=== PATIENT | male | born 1990 | race Caucasian/White ===

== ENCOUNTER 2018-11-03 01:27 | Emergency (ER) | payer BC ==
[2018-11-03] MEDS ORDERED: MORPHINE 4 MG/ML SYR ONE (02:12)
[2018-11-03] MEDS ORDERED: ONDANSETRON 4 MG/2 ML VIAL ONE (02:13)
[2018-11-03] MEDS ORDERED: KETOROLAC 30 MG/ML INJ ONE (02:13)
[2018-11-03] MEDS ORDERED: NA CHLORIDE 0.9% 1,000 ML ONE ×2 (02:13→03:40)
[2018-11-03 02:16] LABS: Absolute Lymphocytes (CBC) 3.6 K/uL (0.7-4.9); Absolute Monocytes 0.9 K/uL (0.1-1.3); Absolute Neutrophil 5.5 K/uL (1.8-8.0); Basophils % 1.1 % (0-1.3); Eosinophils % 0.8 % (0-4.4); Hematocrit 50.1 % (39.6-49.0); Lymphocytes % 35.5 % (15.3-44.8); MPV 9.2 fL (7.6-11.3); Monocytes % 8.7 % (3.3-12.3)
[2018-11-03 02:23] LABS: Albumin 3.8 g/dL (3.4-5.0); Bilirubin Direct 0.3 mg/dL (0-0.2); Bilirubin Total 1.8 mg/dL (0.2-1.0); Potassium 3.8 mmol/L (3.5-5.1); Protein, Total 6.8 g/dL (6.4-8.2)
[2018-11-03] MEDS ORDERED: CEFTRIAXONE/SWI 1gm 1 GM/10 ML SYR ONE (03:40)
[2018-11-03] MEDS ORDERED: TAMSULOSIN 0.4 MG SR CAP ONE (03:40)
--- NOTE | 2018-11-03 04:13 | ER ---
Nurse's Notes [facility] Name: Steve Casillas Age: 27 yrs Sex: Male : 1990 Arrival Date: 11/03/2018 Time: 01:28 Bed 18 Private MD: ERNESTO WILLARD Diagnosis: Hydronephrosis with renal and ureteral calculous obstruction-3 mm distal stone/uvj Presentation: 11/03 01:50 Presenting complaint: Patient states: "Sharp left groin pain that started at 0100H this cc3 morning". Transition of care: patient was not received from another setting of care. Onset of symptoms was November 03, 2018. Risk Assessment: Do you want to hurt yourself or someone else? Patient reports no desire to harm self or others. Initial Sepsis Screen: Does the patient meet any 2 criteria? No. Patient's initial sepsis screen is negative. Does the patient have a suspected source of infection? No. Patient's initial sepsis screen is negative. Care prior to arrival: None. 01:50 Method Of Arrival: Ambulatory cc3 01:50 Acuity: PRAVEENA 3 cc3 Triage Assessment: 01:50 General: Appears in no apparent distress. uncomfortable, Behavior is cooperative, cc3 anxious. Pain: Complains of pain in left groin, left flank Pain currently is 10 out of 10 on a pain scale. Quality of pain is described as aching, sharp, Pain began 1 hour ago. EENT: No signs and/or symptoms were reported regarding the EENT system. Neuro: Level of Consciousness is awake, alert, obeys commands, Oriented to person, place, time, situation, Appropriate for age. Cardiovascular: Denies chest pain, Patient's skin is warm and dry. Respiratory: Airway is patent Respiratory effort is even, unlabored, Respiratory pattern is regular, symmetrical. GI: Abdomen is round obese. : No signs and/or symptoms were reported regarding the genitourinary system. Derm: No signs and/or symptoms reported regarding the dermatologic system. Musculoskeletal: Circulation, motion, and sensation intact. Range of motion: intact in all extremities. Historical: - Allergies: 01:50 No Known Allergies; cc3 - PMHx: 01:50 Kidney stones; cc3 - PSHx: 01:50 right knee surgery; cc3 - Immunization history:: Adult Immunizations up to date. - Social history:: Smoking status: Patient/guardian denies using tobacco, never smoked. - Ebola Screening: : No symptoms or risks identified at this time. Screenin:50 Abuse screen: Denies threats or abuse. Denies injuries from another. Nutritional cc3 screening: No deficits noted. Tuberculosis screening: No symptoms or risk factors identified. Fall Risk Ambulatory Aid- None/Bed Rest/Nurse Assist (0 pts). Gait- Normal/Bed Rest/Wheelchair (0 pts) Mental Status- Oriented to own ability (0 pts). Assessment: 01:50 General: see triage assessment. cc3 02:19 Reassessment: Patient appears in no apparent distress at this time. Patient and/or cc3 family updated on plan of care and expected duration. Pain level reassessed. Patient is alert, oriented x 3, equal unlabored respirations, skin warm/dry/pink. 03:25 Reassessment: Patient appears in no apparent distress at this time. Patient and/or cc3 family updated on plan of care and expected duration. Pain level reassessed. Patient is alert, oriented x 3, equal unlabored respirations, skin warm/dry/pink. 04:40 Reassessment: Patient appears in no apparent distress at this time. Patient and/or cc3 family updated on plan of care and expected duration. Pain level reassessed. Patient is alert, oriented x 3, equal unlabored respirations, skin warm/dry/pink. Dr. Husain discharged the patient home with prescription given. IV cannula removed and patient left ER vitally stable and ambulatory with his . Patient denies pain at this time. Patient states feeling better. Patient states symptoms have improved. Vital Signs: 01:50 BP 142 / 83; Pulse 118; Resp 20 S; Temp 98.3(O); Pulse Ox 99% on R/A; Weight 146.96 kg cc3 (R); Height 5 ft. 10 in. (177.80 cm) (R); Pain 10/10; 02:45 BP 146 / 85; Pulse 92; Resp 20 S; Pulse Ox 98% on R/A; Pain 5/10; cc3 03:30 BP 144 / 79; Pulse 102; Resp 19 S; Pulse Ox 99% on R/A; cc3 04:10 BP 133 / 86; Pulse 93; Resp 18 S; Pulse Ox 96% on R/A; cc3 01:50 Body Mass Index 46.49 (146.96 kg, 177.80 cm) cc3 ED Course: 01:28 Patient arrived in ED. am2 01:28 ERNESTO WILLARD is Private Physician. am2 01:40 Deejay Husain MD is Attending Physician. cheo 01:48 Fany Small is Primary Nurse. cc3 01:50 Inserted saline lock: 20 gauge in right hand, using aseptic technique. Blood collected. cc3 01:50 Arm band placed on right wrist. cc3 01:50 Patient has correct armband on for positive identification. Bed in low position. Call cc3 light in reach. Side rails up X 1. Pulse ox on. NIBP on. 02:26 CT completed. Patient tolerated procedure well. Patient moved to CT via wheelchair. eh Patient moved back from CT. 02:46 CT Stone Protocol In Process Unspecified. EDMS 02:53 Triage completed. cc3 04:12 Marilu Pritchett MD is Referral Physician. cheo 04:40 No provider procedures requiring assistance completed. IV discontinued, intact, cc3 bleeding controlled, No redness/swelling at site. Pressure dressing applied. Administered Medications: 02:00 Drug: NS 0.9% 1000 ml Route: IV; Rate: 1 bolus; Site: right hand; cc3 04:00 Follow up: Response: No adverse reaction; IV Status: Completed infusion; IV Intake: cc3 1000ml 02:00 Drug: morphine 4 mg Route: IVP; Site: right hand; cc3 02:30 Follow up: Response: No adverse reaction; Pain is decreased cc3 02:03 Drug: TORadol 30 mg Route: IVP; Site: right hand; cc3 02:30 Follow up: Response: No adverse reaction; Pain is decreased cc3 02:07 Drug: Zofran 4 mg Route: IVP; Site: right hand; cc3 02:30 Follow up: Response: No adverse reaction; Nausea is decreased cc3 03:25 Drug: Flomax 0.4 mg Route: PO; cc3 03:30 Follow up: Response: No adverse reaction cc3 03:30 Drug: Rocephin - (cefTRIAXone) 1 grams Route: IVPB; Infused Over: 30 mins; Site: right cc3 hand; 03:30 Follow up: Response: No adverse reaction; IV Status: Completed infusion; IV Intake: [id number] 03:37 Drug: NS 0.9% 1000 ml Route: IV; Rate: 1 bolus; Site: right hand; cc3 04:30 Follow up: Response: No adverse reaction; IV Intake: 600ml ; patient discharged home cc3 Intake: 03:30 IV: 10ml; Total: 10ml. cc3 04:00 IV: 1000ml; Total: 1010ml. cc3 04:30 IV: 600ml; Total: 1610ml. cc3 Outcome: 04:12 Discharge ordered by . cheo 04:40 Discharged to home ambulatory, with family. cc3 04:40 Condition: stable 04:40 Discharge instructions given to patient, Instructed on discharge instructions, follow up and referral plans. medication usage, Demonstrated understanding of instructions, follow-up care, medications, Prescriptions given X 4. 04:46 Patient left the ED. cc3 Signatures: Dispatcher [employer] EDMS Deejay Husain MD MD cha Hagler, Janel Garg Fany Lira cc3 Corrections: (The following items were deleted from the chart) 04:19 01:50 BP 142 / 83; Pulse 118bpm; Resp 20bpm; Spontaneous; Pulse Ox 99% RA; Temp 98.3F cc3 Oral; cc3 04:19 02:45 BP 146 / 85; Pulse 92bpm; Resp 20bpm; Spontaneous; Pulse Ox 98% RA; cc3 cc3
--- NOTE | 2018-11-03 04:13 | EDPHYS ---
Physician Documentation [facility] Name: Steve Casillas Age: 27 yrs Sex: Male : 1990 Arrival Date: 11/03/2018 Time: 01:28 Bed 18 Private MD: ERNESTO WILLARD ED Physician Deejay Husain HPI: 11/03 03:19 This 27 yrs old Male presents to ER via Ambulatory with complaints of Flank cheo Pain. 03:19 The patient complains of pain in the left low back and left mid back. Location: left cheo low back and left mid back. Onset: The symptoms/episode began/occurred just prior to arrival. Modifying factors: The symptoms are alleviated by nothing. the symptoms are aggravated by nothing. Associated signs and symptoms: The patient has no apparent associated signs or symptoms. Severity of pain: At its worst the pain was severe in the emergency department the pain has improved mildly. The patient has experienced similar episodes in the past, a few times. Historical: - Allergies: 01:50 No Known Allergies; cc3 - PMHx: 01:50 Kidney stones; cc3 - PSHx: 01:50 right knee surgery; cc3 - Immunization history:: Adult Immunizations up to date. - Social history:: Smoking status: Patient/guardian denies using tobacco, never smoked. - Ebola Screening: : No symptoms or risks identified at this time. ROS: 03:20 Constitutional: Negative for fever, chills, and weight loss, Eyes: Negative for injury, cheo pain, redness, and discharge, ENT: Negative for injury, pain, and discharge, Neck: Negative for injury, pain, and swelling, Cardiovascular: Negative for chest pain, palpitations, and edema, Respiratory: Negative for shortness of breath, cough, wheezing, and pleuritic chest pain, Back: Negative for injury and pain, : Negative for injury, bleeding, discharge, and swelling, MS/Extremity: Negative for injury and deformity, Skin: Negative for injury, rash, and discoloration, Neuro: Negative for headache, weakness, numbness, tingling, and seizure, Psych: Negative for depression, anxiety, suicide ideation, homicidal ideation, and hallucinations, Allergy/Immunology: Negative for hives, rash, and allergies, Endocrine: Negative for neck swelling, polydipsia, polyuria, polyphagia, and marked weight changes, Hematologic/Lymphatic: Negative for swollen nodes, abnormal bleeding, and unusual bruising. 03:20 Abdomen/GI: Positive for abdominal pain, nausea and vomiting, of the left lower quadrant. Exam: 03:20 Constitutional: This is a well developed, well nourished patient who is awake, alert, cheo and in no acute distress. Head/Face: Normocephalic, atraumatic. Eyes: Pupils equal round and reactive to light, extra-ocular motions intact. Lids and lashes normal. Conjunctiva and sclera are non-icteric and not injected. Cornea within normal limits. Periorbital areas with no swelling, redness, or edema. ENT: Nares patent. No nasal discharge, no septal abnormalities noted. Tympanic membranes are normal and external auditory canals are clear. Oropharynx with no redness, swelling, or masses, exudates, or evidence of obstruction, uvula midline. Mucous membranes moist. Neck: Trachea midline, no thyromegaly or masses palpated, and no cervical lymphadenopathy. Supple, full range of motion without nuchal rigidity, or vertebral point tenderness. No Meningismus. Chest/axilla: Normal chest wall appearance and motion. Nontender with no deformity. No lesions are appreciated. Cardiovascular: Regular rate and rhythm with a normal S1 and S2. No gallops, murmurs, or rubs. Normal PMI, no JVD. No pulse deficits. Respiratory: Lungs have equal breath sounds bilaterally, clear to auscultation and percussion. No rales, rhonchi or wheezes noted. No increased work of breathing, no retractions or nasal flaring. Back: No spinal tenderness. No costovertebral tenderness. Full range of motion. Male : Normal genitalia with no discharge or lesions. Skin: Warm, dry with normal turgor. Normal color with no rashes, no lesions, and no evidence of cellulitis. MS/ Extremity: Pulses equal, no cyanosis. Neurovascular intact. Full, normal range of motion. Neuro: Awake and alert, GCS 15, oriented to person, place, time, and situation. Cranial nerves II-XII grossly intact. Motor strength 5/5 in all extremities. Sensory grossly intact. Cerebellar exam normal. Normal gait. Psych: Awake, alert, with orientation to person, place and time. Behavior, mood, and affect are within normal limits. 03:20 Abdomen/GI: Inspection: distension, Bowel sounds: normal, Palpation: abdomen is soft and non-tender, Liver: no appreciated palpable abnormalities, Hernia: not appreciated. Vital Signs: 01:50 BP 142 / 83; Pulse 118; Resp 20 S; Temp 98.3(O); Pulse Ox 99% on R/A; Weight 146.96 kg cc3 (R); Height 5 ft. 10 in. (177.80 cm) (R); Pain 10/10; 02:45 BP 146 / 85; Pulse 92; Resp 20 S; Pulse Ox 98% on R/A; Pain 5/10; cc3 03:30 BP 144 / 79; Pulse 102; Resp 19 S; Pulse Ox 99% on R/A; cc3 04:10 BP 133 / 86; Pulse 93; Resp 18 S; Pulse Ox 96% on R/A; cc3 01:50 Body Mass Index 46.49 (146.96 kg, 177.80 cm) cc3 MDM: 01:44 Patient medically screened. [facility] 03:21 Data reviewed: vital signs, nurses notes, lab test result(s), radiologic studies, CT cheo scan. 11/03 01:41 Order name: Basic Metabolic Panel [facility] 11/03 01:41 Order name: CBC with Diff [facility] 11/03 01:41 Order name: Creatinine for Radiology; Complete Time: 03:18 [facility] 11/03 01:41 Order name: Hepatic Function; Complete Time: 03:18 [facility] 11/03 01:41 Order name: Lipase; Complete Time: 03:18 [facility] 11/03 01:41 Order name: Urine Culture [facility] 11/03 01:41 Order name: CT Stone Protocol [facility] 11/03 01:42 Order name: Basic Metabolic Panel; Complete Time: 03:18 [facility] 11/03 01:42 Order name: CBC with Automated Diff; Complete Time: 03:18 [facility] 11/03 04:35 Order name: Urine Dipstick--Ancillary (enter results) 11/03 01:41 Order name: IV Saline Lock; Complete Time: 01:57 [facility] 11/03 01:41 Order name: Labs collected and sent; Complete Time: 01:57 [facility] 11/03 01:41 Order name: Urine Dipstick-Ancillary (obtain specimen); Complete Time: 04:16 [facility] Administered Medications: 02:00 Drug: NS 0.9% 1000 ml Route: IV; Rate: 1 bolus; Site: right hand; cc3 04:00 Follow up: Response: No adverse reaction; IV Status: Completed infusion; IV Intake: cc3 1000ml 02:00 Drug: morphine 4 mg Route: IVP; Site: right hand; cc3 02:30 Follow up: Response: No adverse reaction; Pain is decreased cc3 02:03 Drug: TORadol 30 mg Route: IVP; Site: right hand; cc3 02:30 Follow up: Response: No adverse reaction; Pain is decreased cc3 02:07 Drug: Zofran 4 mg Route: IVP; Site: right hand; cc3 02:30 Follow up: Response: No adverse reaction; Nausea is decreased cc3 03:25 Drug: Flomax 0.4 mg Route: PO; cc3 03:30 Follow up: Response: No adverse reaction cc3 03:30 Drug: Rocephin - (cefTRIAXone) 1 grams Route: IVPB; Infused Over: 30 mins; Site: right cc3 hand; 03:30 Follow up: Response: No adverse reaction; IV Status: Completed infusion; IV Intake: [id number] 03:37 Drug: NS 0.9% 1000 ml Route: IV; Rate: 1 bolus; Site: right hand; cc3 04:30 Follow up: Response: No adverse reaction; IV Intake: 600ml ; patient discharged home cc3 Disposition: 11/03/18 04:12 Discharged to Home. Impression: Hydronephrosis with renal and ureteral calculous obstruction - 3 mm distal stone/uvj. - Condition is Stable. - Discharge Instructions: Kidney Stones, Kidney Stones, [id number], Hydronephrosis, Dietary Guidelines to Help Prevent Kidney Stones. - Prescriptions for Tylenol- Codeine #3 300-30 mg Oral Tablet - take 2 tablet by ORAL route every 6 hours As needed; 30 tablet. Zofran 4 mg Oral Tablet - take 1 tablet by ORAL route every 12 hours As needed; 20 tablet. Flomax 0.4 mg Oral Capsule, Sust. Release 24 hr - take 1 capsule by ORAL route once daily 1/2 hour following the same meal each day; 30 capsule. Cipro 500 mg Oral Tablet - take 1 tablet by ORAL route every 12 hours for 7 days; 14 tablet. - Medication Reconciliation Form, Thank You Letter, Antibiotic Education, Prescription Opioid Use form. - Follow up: Private Physician; When: 2 - 3 days; Reason: Recheck today's complaints, Continuance of care, Re-evaluation by your physician. Follow up: Marilu Pritchett; When: 1 - 2 days; Reason: Recheck today's complaints, Re-evaluation by your physician. - Problem is new. - Symptoms have improved. Signatures: Dispatcher [employer] EDTN Deejay Husain, Fany Ceballos MD, cha cc3 Corrections: (The following items were deleted from the chart) 04:46 04:12 11/03/2018 04:12 Discharged to Home. Impression: Hydronephrosis with renal and cc3 ureteral calculous obstruction - 3 mm distal stone/uvj. Condition is Stable. Discharge Instructions: Kidney Stones, Kidney Stones, [id number], Hydronephrosis, Dietary Guidelines to Help Prevent Kidney Stones. Prescriptions for Tylenol-Codeine #3 300-30 mg Oral Tablet - take 2 tablet by ORAL route every 6 hours As needed; 30 tablet, Zofran 4 mg Oral Tablet - take 1 tablet by ORAL route every 12 hours As needed; 20 tablet, Flomax 0.4 mg Oral Capsule, Sust. Release 24 hr - take 1 capsule by ORAL route once daily 1/2 hour following the same meal each day; 30 capsule, Cipro 500 mg Oral Tablet - take 1 tablet by ORAL route every 12 hours for 7 days; 14 tablet. and Forms are Medication Reconciliation Form, Thank You Letter, Antibiotic Education, Prescription Opioid Use. Follow up: Private Physician; When: 2 - 3 days; Reason: Recheck today's complaints, Continuance of care, Re-evaluation by your physician. Follow up: Marilu Pritchett; When: 1 - 2 days; Reason: Recheck today's complaints, Re-evaluation by your physician. Problem is new. Symptoms have improved. cheo
[2018-11-03 04:37] LABS: Urine Blood TRACE (NEG); Urine Glucose NEGATIVE (NEG); Urine Protein 2+ (NEG); Urine Specific Gravity >1.030 (1.005-1.030)
--- NOTE | 2018-11-06 14:43 | RAD REPORT ---
EXAM DESCRIPTION: CT Abdomen and Pelvis Without Intravenous Contrast CLINICAL HISTORY: The patient is 27 years old and is Male; FLANK PAIN TECHNIQUE: Axial computed tomography images of the abdomen and pelvis without intravenous contrast. Sagittal and coronal reformatted images were created and reviewed. This CT exam was performed usi ng one or more of the following dose reduction techniques: automated exposure control, adjustment o f the mA and/or kV according to patient size, and/or use of iterative reconstruction technique. COMPARISON: CT of abdomen and pelvis without contrast dated February 22, 2017 FINDINGS: LUNG BASES: Unremarkable. No mass. No consolidation. ABDOMEN: LIVER: Unremarkable. GALLBLADDER AND BILE DUCTS: Unremarkable. No calcified stones. No ductal dilation. PANCREAS: Unremarkable. No ductal dilation. SPLEEN: Unremarkable. No splenomegaly. ADRENALS: Unremarkable. No mass. KIDNEYS AND URETERS: 3 mm radiopaque stone at the left UVJ. Mild hydronephrosis and hydroureter no morris. Mild left renal enlargement/perinephric stranding. Additional punctate nonobstructive left renal stone. STOMACH AND BOWEL: Unremarkable. No obstruction. No mucosal thickening. PELVIS: APPENDIX: The appendix is seen and is within normal limits. BLADDER: Bladder is decompressed. No stones. REPRODUCTIVE: Unremarkable as visualized. ABDOMEN and PELVIS: INTRAPERITONEAL SPACE: Unremarkable. No free air. No significant fluid collection. BONES/JOINTS: No acute fracture. No dislocation. SOFT TISSUES: Small fat-containing umbilical hernia. VASCULATURE: Unremarkable. No abdominal aortic aneurysm. LYMPH NODES: Unremarkable. No enlarged lymph nodes. IMPRESSION: Obstructive 3 mm left UVJ calculus with mild hydronephrosis, hydroureter, slight asymmet loan left renal enlargement and perinephric stranding. Additional punctate left renal stone in the col lecting system. Electronically signed by: Ab Tay DO 11/03/2018 3:19 AM CDT Due to temporary technical issues with the PACS/Fluency reporting system, reports are being signed by the in house radiologist as a courtesy to ensure prompt reporting. The interpreting radiologist is f jacintaly responsible for the content of the report.
== END 2018-11-03 04:46 | disposition home or self-care (01) ==
LOC: ER 01:27
DX: N13.2 Hydronephrosis with renal and ureteral calculous obstruction (principal); Z87.442 Personal history of urinary calculi
CPT/HCPCS: 36415; 74176; 76377; 80048; 80076; 81003; 83690; 85025; 87086; 87088; 96361; 96374; 96375; 99284; J0696; J2405; J7030

== ENCOUNTER 2018-11-05 08:51 | Emergency (ER) | payer BC ==
[2018-11-05] MEDS ORDERED: NA CHLORIDE 0.9% 1,000 ML ONE ×2 (10:32→12:02)
[2018-11-05] MEDS ORDERED: KETOROLAC 30 MG/ML INJ ONE (10:32)
[2018-11-05 10:35] LABS: Absolute Lymphocytes (CBC) 1.4 K/uL (0.7-4.9); Absolute Neutrophil 10.1 K/uL (1.8-8.0); Basophils % 0.4 % (0-1.3); Eosinophils % 0.2 % (0-4.4); Hematocrit 47.6 % (39.6-49.0); Lymphocytes % 10.8 % (15.3-44.8); Monocytes % 7.9 % (3.3-12.3); RBC Red Blood Cell Count 5.12 M/uL (4.33-5.43)
--- NOTE | 2018-11-05 12:11 | EDPHYS ---
Physician Documentation [facility] Name: Steve Casillas Age: 27 yrs Sex: Male : 1990 Arrival Date: 11/05/2018 Time: 08:54 Bed 19 Private MD: ED Physician Corey Crowley HPI: 11/05 10:05 This 27 yrs old Male presents to ER via Ambulatory with complaints of pm1 Abdominal Pain. 10:05 The patient presents with abdominal pain in the left lower quadrant. Onset: The pm1 symptoms/episode began/occurred 2 day(s) ago. The symptoms do not radiate. Associated signs and symptoms: Pertinent negatives: nausea and vomiting, chest pain, constipation, diarrhea, dysuria, fever, headache, shortness of breath. The symptoms are described as sharp. Modifying factors: The symptoms are alleviated by narcotics, but makes him sleepy so has tried not to take Tylenol #3. Severity of pain: in the emergency department the pain is actually worse. The patient has experienced similar episodes in the past, several times. The patient has been recently seen at the [facility] Emergency Department, for similar complaints labs were performed, CT scan was performed, was given a prescription for antibiotics, was given a prescription for pain medications, was given a prescription for an antiemetic, 2 days ago. Historical: - Allergies: 09:06 No Known Allergies; em - Home Meds: 09:06 None [Active]; em - PMHx: 09:06 Kidney stones; em - PSHx: 09:06 None; em - Immunization history:: Adult Immunizations up to date. - Social history:: Smoking status: Patient/guardian denies using tobacco. - Ebola Screening: : Patient negative for fever greater than or equal to 101.5 degrees Fahrenheit, and additional compatible Ebola Virus Disease symptoms Patient denies exposure to infectious person Patient denies travel to an Ebola-affected area in the 21 days before illness onset No symptoms or risks identified at this time. ROS: 10:05 Constitutional: Negative for fever, chills, and weight loss, Eyes: Negative for injury, pm1 pain, redness, and discharge, ENT: Negative for injury, pain, and discharge, Neck: Negative for injury, pain, and swelling, Cardiovascular: Negative for chest pain, palpitations, and edema, Respiratory: Negative for shortness of breath, cough, wheezing, and pleuritic chest pain. 10:05 Back: Negative for injury and pain, : Negative for injury, bleeding, discharge, and swelling, MS/Extremity: Negative for injury and deformity, Skin: Negative for injury, rash, and discoloration, Neuro: Negative for headache, weakness, numbness, tingling, and seizure. 10:05 Abdomen/GI: Positive for abdominal pain, of the left lower quadrant, Negative for nausea, vomiting, and diarrhea. Exam: 10:05 Constitutional: This is a well developed, well nourished patient who is awake, alert, pm1 and in no acute distress. Head/Face: Normocephalic, atraumatic. Eyes: Pupils equal round and reactive to light, extra-ocular motions intact. Lids and lashes normal. Conjunctiva and sclera are non-icteric and not injected. Cornea within normal limits. Periorbital areas with no swelling, redness, or edema. ENT: Nares patent. No nasal discharge, no septal abnormalities noted. Tympanic membranes are normal and external auditory canals are clear. Oropharynx with no redness, swelling, or masses, exudates, or evidence of obstruction, uvula midline. Mucous membranes moist. Neck: Trachea midline, no thyromegaly or masses palpated, and no cervical lymphadenopathy. Supple, full range of motion without nuchal rigidity, or vertebral point tenderness. No Meningismus. Chest/axilla: Normal chest wall appearance and motion. Nontender with no deformity. No lesions are appreciated. Cardiovascular: Regular rate and rhythm with a normal S1 and S2. No gallops, murmurs, or rubs. Normal PMI, no JVD. No pulse deficits. Respiratory: Lungs have equal breath sounds bilaterally, clear to auscultation and percussion. No rales, rhonchi or wheezes noted. No increased work of breathing, no retractions or nasal flaring. Abdomen/GI: Soft, non-tender, with normal bowel sounds. No distension or tympany. No guarding or rebound. No evidence of tenderness throughout. Back: No spinal tenderness. No costovertebral tenderness. Full range of motion. Skin: Warm, dry with normal turgor. Normal color with no rashes, no lesions, and no evidence of cellulitis. MS/ Extremity: Pulses equal, no cyanosis. Neurovascular intact. Full, normal range of motion. 10:05 Neuro: Orientation: is normal, Motor: is normal, moves all fours. Vital Signs: 09:06 BP 136 / 80; Pulse 109; Resp 20; Temp 98.9(O); Pulse Ox 97% on R/A; Weight 146.96 kg; em Height 5 ft. 10 in. (177.80 cm); Pain 8/10; 10:20 BP 127 / 83; Pulse 102; Resp 18; Pulse Ox 96% on R/A; em 11:21 BP 108 / 67; Pulse 78; Resp 18; Pulse Ox 99% on R/A; Pain 1/10; em 12:15 BP 128 / 68; Pulse 94; Resp 18; Pulse Ox 99% on R/A; Pain 0/10; em 13:21 BP 133 / 81; Pulse 95; Resp 18; Pulse Ox 99% on R/A; em 09:06 Body Mass Index 46.49 (146.96 kg, 177.80 cm) em MDM: 09:03 Patient medically screened. pm1 12:07 Data reviewed: vital signs. Data interpreted: Pulse oximetry: on room air is 99 %. pm1 Interpretation: normal. Counseling: I had a detailed discussion with the patient and/or guardian regarding: the historical points, exam findings, and any diagnostic results supporting the discharge/admit diagnosis, lab results, the need for outpatient follow up, to return to the emergency department if symptoms worsen or persist or if there are any questions or concerns that arise at home. 11/05 09:51 Order name: Basic Metabolic Panel; Complete Time: 10:49 pm1 11/05 09:51 Order name: CBC with Diff; Complete Time: 10:37 pm1 11/05 11:43 Order name: Urine Dipstick--Ancillary (enter results); Complete Time: 12:39 bd 11/05 09:51 Order name: IV Saline Lock; Complete Time: 10:23 pm1 11/05 09:51 Order name: Labs collected and sent; Complete Time: 10:23 pm1 11/05 09:51 Order name: Urine Dipstick-Ancillary (obtain specimen); Complete Time: 11:57 pm1 Administered Medications: 10:23 Drug: NS 0.9% 1000 ml Route: IV; Rate: 1000 ml; Site: right hand; em 11:56 Follow up: IV Status: Completed infusion; IV Intake: 1000ml em 10:24 Drug: TORadol 30 mg Route: IVP; Site: right hand; iw 11:56 Follow up: Response: No adverse reaction; Pain is decreased em 11:57 Drug: NS 0.9% 1000 ml Route: IV; Rate: 1000 ml; Site: right hand; em 13:20 Follow up: IV Status: Completed infusion; IV Intake: 1000ml em Disposition: 11/05/18 12:10 Discharged to Home. Impression: Left ureteral calculous. - Condition is Stable. - Discharge Instructions: Kidney Stones, Dietary Guidelines to Help Prevent Kidney Stones. - Prescriptions for Tramadol 50 mg Oral Tablet - take 1 tablet by ORAL route every 8 hours as needed; 20 tablet. - Medication Reconciliation Form, Thank You Letter, Antibiotic Education, Prescription Opioid Use form. - Follow up: Emergency Department; When: As needed; Reason: Worsening of condition. - Problem is new. - Symptoms have improved. Addendum: 11/09/2018 20:35 Co-signature as Attending Physician, Corey Crowley MD. g s Signatures: Dispatcher [employer] EDNC Brooks Scruggs, SAP BPC ARCHITECT SAP BPC ARCHITECT em Latia Sosa RN RN iw Jeremie Finch, JOANNA OUTPATIENT INTERVIEWING CLERK pm1 Corey Crowley MD MD Corrections: (The following items were deleted from the chart) 11/05 13:22 12:10 11/05/2018 12:10 Discharged to Home. Impression: Left ureteral calculous. em Condition is Stable. Forms are Medication Reconciliation Form, Thank You Letter, Antibiotic Education, Prescription Opioid Use. Follow up: Emergency Department; When: As needed; Reason: Worsening of condition. Problem is new. Symptoms have improved. pm1
--- NOTE | 2018-11-05 12:11 | ER ---
Nurse's Notes [facility] Name: Steve Casillas Age: 27 yrs Sex: Male : 1990 Arrival Date: 11/05/2018 Time: 08:54 Bed 19 Private MD: Diagnosis: Left ureteral calculous Presentation: 11/05 09:04 Presenting complaint: Patient states: was seen here Robert for kidney stones, pain has em been worse since then, reports N/V, has been taking medications as prescribed, denies fever or blood in urine. Transition of care: patient was not received from another setting of care. Onset of symptoms was November 03, 2018. Risk Assessment: Do you want to hurt yourself or someone else? Patient reports no desire to harm self or others. Initial Sepsis Screen: Does the patient meet any 2 criteria? HR > 90 bpm. Does the patient have a suspected source of infection? Yes: Dysuria/Frequency/Urgency/UTI. Care prior to arrival: None. 09:04 Method Of Arrival: Ambulatory em 09:09 Acuity: PRAVEENA 3 iw Triage Assessment: 09:06 General: Appears uncomfortable, Behavior is calm, cooperative. Pain: Complains of pain em in left lower quadrant. GI: Abdomen is round non-distended, Reports nausea, vomiting. Historical: - Allergies: 09:06 No Known Allergies; em - Home Meds: 09:06 None [Active]; em - PMHx: 09:06 Kidney stones; em - PSHx: 09:06 None; em - Immunization history:: Adult Immunizations up to date. - Social history:: Smoking status: Patient/guardian denies using tobacco. - Ebola Screening: : Patient negative for fever greater than or equal to 101.5 degrees Fahrenheit, and additional compatible Ebola Virus Disease symptoms Patient denies exposure to infectious person Patient denies travel to an Ebola-affected area in the 21 days before illness onset No symptoms or risks identified at this time. Screenin:07 Abuse screen: Denies threats or abuse. Nutritional screening: No deficits noted. em Tuberculosis screening: No symptoms or risk factors identified. Fall Risk None identified. Assessment: 09:06 General: Appears in no apparent distress. uncomfortable, Behavior is calm, cooperative, em Denies fever. Pain: Complains of pain in left lower quadrant Pain currently is 8 out of 10 on a pain scale. Pain began 2-3 days ago. Neuro: Level of Consciousness is awake, alert, obeys commands, Oriented to person, place, time, situation. Cardiovascular: Capillary refill < 3 seconds. Respiratory: Airway is patent Respiratory effort is even, unlabored, Respiratory pattern is regular, symmetrical. GI: Abdomen is round non-distended, Bowel sounds present X 4 quads. Abd is soft X 4 quads Abdomen is tender to palpation in left lower quadrant Reports nausea, Patient currently denies diarrhea, vomiting. : Denies burning with urination. Derm: Skin is intact, is healthy with good turgor, Skin is pink, warm \T\ dry. Musculoskeletal: Capillary refill < 3 seconds, Range of motion: intact in all extremities. 09:47 Reassessment: provider at bedside. em 10:00 Reassessment: Patient appears in no apparent distress at this time. Patient and/or em family updated on plan of care and expected duration. Pain level reassessed. Patient is alert, oriented x 3, equal unlabored respirations, skin warm/dry/pink. 11:20 Reassessment: Patient appears in no apparent distress at this time. Patient and/or em family updated on plan of care and expected duration. Pain level reassessed. Patient is alert, oriented x 3, equal unlabored respirations, skin warm/dry/pink. rates pain 1/10 Patient states feeling better. 12:41 Reassessment: Patient appears in no apparent distress at this time. Patient and/or em family updated on plan of care and expected duration. Pain level reassessed. Patient is alert, oriented x 3, equal unlabored respirations, skin warm/dry/pink. pending completion of NS bolus Patient denies pain at this time. Patient states feeling better. Patient states symptoms have improved. Vital Signs: 09:06 BP 136 / 80; Pulse 109; Resp 20; Temp 98.9(O); Pulse Ox 97% on R/A; Weight 146.96 kg; em Height 5 ft. 10 in. (177.80 cm); Pain 8/10; 10:20 BP 127 / 83; Pulse 102; Resp 18; Pulse Ox 96% on R/A; em 11:21 BP 108 / 67; Pulse 78; Resp 18; Pulse Ox 99% on R/A; Pain 1/10; em 12:15 BP 128 / 68; Pulse 94; Resp 18; Pulse Ox 99% on R/A; Pain 0/10; em 13:21 BP 133 / 81; Pulse 95; Resp 18; Pulse Ox 99% on R/A; em 09:06 Body Mass Index 46.49 (146.96 kg, 177.80 cm) em ED Course: 08:54 Patient arrived in ED. tw3 09:03 Jeremie Finch NP is PHCP. pm1 09:03 Corey Crowley MD is Attending Physician. pm1 09:04 Brooks Scruggs LVN is Primary Nurse. em 09:06 Arm band placed on. em 09:07 Patient has correct armband on for positive identification. Placed in gown. Bed in low em position. Adult w/ patient. Pulse ox on. NIBP on. 09:10 Triage completed. iw 10:20 Initial lab(s) drawn, by me, sent to lab. Inserted saline lock: 22 gauge in right hand, em using aseptic technique. Blood collected. 13:20 No provider procedures requiring assistance completed. IV discontinued, intact, em bleeding controlled, No redness/swelling at site. Pressure dressing applied. Administered Medications: 10:23 Drug: NS 0.9% 1000 ml Route: IV; Rate: 1000 ml; Site: right hand; em 11:56 Follow up: IV Status: Completed infusion; IV Intake: 1000ml em 10:24 Drug: TORadol 30 mg Route: IVP; Site: right hand; iw 11:56 Follow up: Response: No adverse reaction; Pain is decreased em 11:57 Drug: NS 0.9% 1000 ml Route: IV; Rate: 1000 ml; Site: right hand; em 13:20 Follow up: IV Status: Completed infusion; IV Intake: 1000ml em Intake: 11:56 IV: 1000ml; Total: 1000ml. em 13:20 IV: 1000ml; Total: 2000ml. em Outcome: 12:10 Discharge ordered by . pm1 13:20 Discharged to home ambulatory, with family. em 13:20 Condition: good 13:20 Discharge instructions given to patient, family, Instructed on discharge instructions, follow up and referral plans. medication usage, Demonstrated understanding of instructions, follow-up care, medications, Prescriptions given X 1. 13:22 Patient left the ED. em Signatures: Brooks Scruggs PSYCHOMETRIST PSYCHOMETRIST em Latia Sosa, RN RN iw Jeremie Finch, JOANNA STUDENT ASSISTANCE COUNSELOR pm1 Nenita Walsh tw3 Corrections: (The following items were deleted from the chart) 10:25 10:24 TORadol 30 mg IVP in right antecubital iw
[2018-11-05 12:15] LABS: Urine Blood TRACE (NEG); Urine Glucose NEGATIVE (NEG); Urine Protein 1+ (NEG); Urine Specific Gravity 1.025 (1.005-1.030)
== END 2018-11-05 13:22 | disposition home or self-care (01) ==
LOC: ER 08:51
DX: N20.1 Calculus of ureter (principal); Z87.442 Personal history of urinary calculi
CPT/HCPCS: 36415; 80048; 81003; 85025; 96361; 96374; 99284; J7030

== ENCOUNTER 2018-11-07 09:40 | Day surgery (SDC) | payer BC ==
[2018-11-06 16:55] LABS: Urine Appearance CLOUDY; Urine Bilirubin NEGATIVE (NEG); Urine Blood 3+ (NEG); Urine Color YELLOW; Urine Glucose NEGATIVE (NEG); Urine Protein 2+ (NEG); Urine pH 6.5 (5.0-7.0)
[2018-11-06 16:58] LABS: Absolute Lymphocytes (CBC) 1.8 K/uL (0.7-4.9); Absolute Monocytes 0.9 K/uL (0.1-1.3); Absolute Neutrophil 9.5 K/uL (1.8-8.0); Basophils % 0.4 % (0-1.3); Eosinophils % 0.5 % (0-4.4); Hematocrit 47.7 % (39.6-49.0); Lymphocytes % 14.4 % (15.3-44.8); MPV 9.1 fL (7.6-11.3); Monocytes % 7.2 % (3.3-12.3); RBC Red Blood Cell Count 5.14 M/uL (4.33-5.43)
[2018-11-06 17:02] LABS: Protime INR 1.1
[2018-11-06 17:05] LABS: Urine Microscopic Reflex ORDER UMIC
[2018-11-06 17:18] LABS: Potassium 4.2 mmol/L (3.5-5.1); Uric Acid 9.7 mg/dL (3.5-7.2)
[2018-11-06 17:19] LABS: Urine Bacteria 20-50 /HPF (NONE SEEN); Urine Culture Reflex Order NOT NEEDED
--- NOTE | 2018-11-06 17:37 | RAD REPORT ---
EXAM DESCRIPTION: Fadi Worthy (2 Views)11/06/2018 5:31 pm CLINICAL HISTORY: Abdominal pain COMPARISON: None FINDINGS: The lungs appear clear of acute infiltrate. The heart is normal size IMPRESSION: No acute abnormalities displayed
[2018-11-07] MEDS ORDERED: Ringers Lactate 1,000 ML IV ONE (10:06)
[2018-11-07] MEDS ORDERED: GENTAMICIN 80 MG/100 ML BAG 0 MG/0 ML BAG IV ONE (10:06)
--- NOTE | 2018-11-07 10:31 | RAD REPORT ---
EXAM DESCRIPTION: RAD - Abdomen 1 View (KUB) - 11/07/2018 10:05 am CLINICAL HISTORY: Preop examination, left kidney stone COMPARISON: KUB November 06, CT study November 03 FINDINGS: No renal calculi confirmed on this study. Bowel content limits assessment. The 3 mm left U VJ calculus detailed November 03 is difficult to clearly define on this study. There is a faint density in the left mid pelvis that may be the corresponding calcification. This is slightly higher than would be expected. No convincing evidence for a bladder calculus. IMPRESSION: The distal left UVJ calculus detailed November 03 is not definitively identified on this stud y. There is a faint calcification in the left mid pelvis that is a potential correlate. This is more sup erior than would be expected based on the CT findings.
== END 2018-11-07 10:43 | disposition home health service (06) ==
LOC: OR 09:40
PROVIDERS: ATTEND Urology
DX: N20.2 Calculus of kidney with calculus of ureter (principal); Z53.9 Procedure and treatment not carried out, unspecified reason; N39.0 Urinary tract infection, site not specified; E29.1 Testicular hypofunction; E55.9 Vitamin D deficiency, unspecified; Z79.899 Other long term (current) drug therapy; Z01.818 Encounter for other preprocedural examination
CPT/HCPCS: 36415; 71046; 74018; 80048; 81003; 81015; 84550; 85025; 85610; 85730; 87086; 87088; J1580